=== PATIENT | female | born 1950 | race Caucasian/White ===

== ENCOUNTER → 2016-05-01 | Outpatient (CLI) | payer OTHER | LOC: BMCIMAGING 09:36 | PROVIDERS: ATTEND Internal Medicine | DX: M81.0 Age-related osteoporosis without current pathological fracture (principal) ==

== ENCOUNTER → 2016-08-22 | Outpatient (CLI) | payer OTHER | LOC: FIMAGING 11:21 | PROVIDERS: ATTEND Internal Medicine | DX: Z12.31 Encounter for screening mammogram for malignant neoplasm of breast (principal); Z80.3 Family history of malignant neoplasm of breast | CPT/HCPCS: G0202 ==

== ENCOUNTER 2017-03-20 04:10 | Emergency (ER) | payer OTHER, MEDICARE ==
--- NOTE | 2017-03-20 04:14 | EDPHY ---
H & P HPI/ROS: HPI CHIEF COMPLAINT: Possible reaction to Tamiflu tongue discomfort and possible swelling HISTORY OF PRESENT ILLNESS: Patient very pleasant 66-year-old female she has history of thyroid disease, she presents emergency room at 4:15 a.m. in the morning with a sensation that her tongue is swollen and additionally on the right side of her tongue some white hardness. She denies any trauma to her tongue. She states that she thinks she may be having a reaction to Tamiflu. She took her Tamiflu at 10:00 p.m.. This is her 3rd dose. She is taking Tamiflu for prophylaxis coverage as her grand kid has the flu and pneumonia. She states she did well with the other doses however tonight she thought maybe her tongue was getting swollen she called the physician on-call and they recommend she takes dose of Benadryl comes emergency room for evaluation. She denies any chest pain or shortness of breath denies trouble swallowing denies rash or pruritus. Past Medical History: Thyroid disease, GERD Past Surgical History: No recent surgical history Social History: Denies daily use of drugs alcohol tobacco Family History: Noncontributory ROS REVIEW OF SYSTEMS: A comprehensive 10 point review of systems is otherwise negative aside from elements mentioned in the history of present illness. Exam Constitutional appears well nontoxic triage nursing summary reviewed, vital signs reviewed, awake/alert. Eyes normal conjunctivae and sclera, EOMI, PERRLA. HENT posterior pharynx is normal, uvula midline no swelling, oropharynx I do not appreciate any significant signs of swelling. The tongue appears normal in size, I do not appreciate any lesions. No signs of infection. normal inspection , atraumatic, moist mucus membranes, no epistaxis, neck supple/ no meningismus, no raccoon eyes. Respiratory clear to auscultation bilaterally, normal breath sounds, no respiratory distress, no wheezing. Cardiovascular rate normal, regular rhythm, no murmur, no edema, distal pulses normal. Gastrointestinal soft, non-tender, no rebound, no guarding, normal bowel sounds, no distension, no pulsatile mass. Genitourinary no CVA tenderness. Musculoskeletal no midline vertebral tenderness, full range of motion, no calf swelling, no tenderness of extremities, no meningismus, good pulses, neurovascularly intact. Skin pink, warm, & dry, no rash, skin atraumatic. Neurologic awake, alert and oriented x 3, AAOx3, moves all 4 extremities equally, motor intact, sensory intact, CN II-XII intact, normal cerebellar, normal vision, normal speech. Psychiatric normal mood/affect. Heme/Lymph/Immune no lymphadenopathy. Differential Diagnosis: Includes but is not limited to in a particular order allergic reaction, anaphylaxis, medication adverse effect Medical Decision Making: Plan for this patient p. o. Benadryl, p.o. prednisone , p. o. Pepcid and observation here in the emergency room. Re-evaluation: [id number]: Re-examination at this time patient resting comfortably. There has been no further progression of a allergic reaction. No further tongue swelling no posterior pharynx swelling no stridor no respiratory symptoms urticaria. I do recommend she stop taking the Tamiflu. Additionally I recommend she return emergency room if she develops worsening type allergic reaction symptoms. She is agreeable this plan Source: Patient Constitutional: Initial Vital Signs Temperature (C) 36.4 C 03/20/17 04:10 Heart Rate 81 03/20/17 04:10 Respiratory Rate 18 03/20/17 04:10 Blood Pressure 158/89 H 03/20/17 04:10 O2 Sat (%) 96 03/20/17 04:10 O2 Delivery Mode Room Air Allergies/Adverse Reactions: mometasone furoate [From Nasonex] Allergy (Verified 03/20/17 04:20) PCN Allergy (Intermediate, Uncoded 03/20/17 04:20) Hives Home Medications: Medication Instructions Recorded CHOLECALCIFEROL [VITAMIN D] 400 unit PO 03/20/17 Esomeprazole Magnesium [Nexium] 40 mg PO 03/20/17 Levothyroxine [Synthroid 112 mcg 112 mcg PO DAILY06 03/20/17 (*)] Medical Decision Making - Data Points Medications Given: Discontinued Medications Diphenhydramine HCl (Benadryl) 25 mg PO EDNOW ONE Stop: 03/20/17 04:20 Last Admin: 03/20/17 04:24 Dose: 25 mg Famotidine (Pepcid) 20 mg PO EDNOW ONE Stop: 03/20/17 04:20 Last Admin: 03/20/17 04:23 Dose: 20 mg Prednisone (Prednisone) 60 mg PO EDNOW ONE Stop: 03/20/17 04:20 Last Admin: 03/20/17 04:23 Dose: 60 mg Departure - Departure Disposition: Home, Routine, Self-Care Clinical Impression: Allergic reaction Qualifiers: Encounter type: initial encounter Qualified Code(s): T78.40XA - Allergy, unspecified, initial encounter Condition: Good Instructions: Anaphylaxis (ED), Allergies (ED) Additional Instructions: 1. Stop your Tamiflu. 2. Return emergency room if you have any worsening symptoms questions or concerns. This includes further signs of allergic reaction trouble breathing, trouble swelling, tongue getting bigger Referrals: Harriet Edmondson MD [Primary Care Provider] - As per Instructions
[2017-03-20] MEDS ORDERED: diphenhydrAMINE 25 MG CAP PO ONE (04:19)
[2017-03-20] MEDS ORDERED: FAMOTIDINE 20 MG TAB PO ONE (04:19)
[2017-03-20] MEDS ORDERED: predniSONE 20 MG TAB PO ONE (04:19)
[2017-03-20 04:20] VITALS: TEMP 97.5
[2017-03-20 05:20] VITALS: BP 121/74; PULSE 71; RESP 16; O2SAT 95
== END 2017-03-20 06:01 | disposition home or self-care (01) ==
DX: T78.40XA Allergy, unspecified, initial encounter (principal)
CPT/HCPCS: 99283; J7512

== ENCOUNTER → 2017-08-27 | Outpatient (CLI) | payer OTHER, MEDICARE | LOC: FIMAGING 08:18 | PROVIDERS: ATTEND Internal Medicine | DX: Z12.31 Encounter for screening mammogram for malignant neoplasm of breast (principal); Z85.3 Personal history of malignant neoplasm of breast ==

== ENCOUNTER → 2018-03-23 | Outpatient (CLI) | payer OTHER, MEDICARE | PROVIDERS: ATTEND Otolaryngology | DX: R13.10 Dysphagia, unspecified (principal); K44.9 Diaphragmatic hernia without obstruction or gangrene; K21.9 Gastro-esophageal reflux disease without esophagitis | CPT/HCPCS: 92611-GN ==

== ENCOUNTER → 2018-05-21 | Outpatient (CLI) | payer OTHER, MEDICARE | LOC: BMCIMAGING 08:40 | PROVIDERS: ATTEND Family Medicine | DX: M25.531 Pain in right wrist (principal) ==